=== PATIENT | male | born 1960 | race Caucasian/White ===

== ENCOUNTER 2017-05-14 11:35 | Outpatient (CLI) | payer BC, MEDICARE ==
[~2017-05-14] VITALS: Ht 185.4 cm; Wt 100.0 kg
--- NOTE | ~2017-05-14 | OP ---
PATIENT NAME: STEVE BLEDSOE MEDICAL RECORD: [id number] :60 LOCATION:D.CAT ADMISSION DATE: SURGEON: KESHAV SMITH MD DATE OF OPERATION: 05/14/2017 PROCEDURE: Left heart catheterization, selective coronary angiography, right radial approach as well as aortic root injection. CATHETERS: Creighton catheter, AR catheter. The procedure was well tolerated. The patient returned to low. Sheath was removed. TR band was placed. FINDINGS: Left ventriculography in 30-degree BLACK view, mild anterior hypokinesis, but overall function is preserved at 50%. CORONARY ANATOMY: 1. Left main: Left main is free of disease. 2. LAD: An area of previous stenting shows about 80% stenosis, somewhat diffuse with good target distally. 3. Circumflex: Medium sized circumflex with high OM probably about 80% proximal stenosis, which is a reasonable target. 4. Right coronary artery is a huge artery with anterior superior takeoff. The midportion of vessel has about 80% stenosis. Right at the takeoff of the large posterolateral and posterior descending branch, there is diffuse stenosis of about 80% involving both these vessels proximally. IMPRESSION: Multivessel coronary artery disease. LV function is preserved. It does not appear to be ideal anatomy for intervention from percutaneous standpoint. I think best retirement revascularization would be through coronary bypass grafting. Dr. Roland is consulted for this purpose. TRANSINT:[id number] Voice Confirmation ID: [id number] DOCUMENT ID: [id number] KESHAV SMITH MD at 1347 CC: [id number] DICTATION DATE: 05/14/17 1438 SALES PROCESS MANAGER: 05/14/17 1508 DEP CLI 05/14/[address] [facility] [address] [facility] [place] [address]
--- NOTE | ~2017-05-14 | HEMODYNAMI ---
PATIENT:STEVE BLEDSOE MEDICAL RECORD: [id number] : 60 LOCATION:DMARK ADMISSION DATE: 05/14/17 Generatedon:05/14/201714:33 Patient name: STEVE BLEDSOE Patient #: [id number] SSN: : 1960 Date of study: 05/14/2017 Page: Of Hemodynamic Procedure Report Patient Data Patient Demographics Procedure consent was obtained First Name: STEVE Gender: Male Last Name: RAKAN : 1960 [facility] Initial: RAHEEM Age: 56 year(s) Patient #: [id number] Race: Unknown Additional ID: [id number] Contact details [address]: [address] [place] [address] DRIVE State: [place] City: [place] Zip code: [address] Admission Admission Data Admission Date: 05/14/2017 Admission Time: 11:35 Admit Source: Other Lab Results Lab Result Date: 05/14/2017 Lab Result Time: 12:00 Biochemistry Name Units Result Min Max BUN mg/dl 13 --(--*-)-- 7 18 Creatinine mg/dl 1.1 --(--*-)-- 0.6 1.3 CBC Name Units Result Min Max Hematocrit % 44.2 --(*---)-- 42 54 Hemoglobin g/dl 15.3 --(-*--)-- 13.5 17.5 Procedure Procedure Types Cath Procedure Diagnostic Procedure [facility] w/Coronaries Miscellaneous Procedures Moderate Sedation up to 30 minutes Procedure Description Procedure Date Procedure Date: 05/14/2017 Procedure Start Time: 14:04 Procedure End Time: 14:29 Procedure Staff Name Function Raheem Cooper MD Performing Physician Chayo Claros RT Scrub Elian Burden RN Nurse Sumaya Rice RT Monitor Procedure Data Cath Procedure Fluoroscopy Diagnostic fluoroscopy Total fluoroscopy Time: 7 time: 7 min min Diagnostic fluoroscopy Total fluoroscopy dose: dose: 1310 mGy 1310 mGy Contrast Material Contrast Material Type Amount (ml) Isovue 300 141 Entry Location Entry Primary Successful Side Size Upsize Upsize Entry Closure Benavidez ccessful Closure Location (Fr) 1 (Fr) 2 (Fr) Remarks Device Remarks Radial Right 6 Fr Mechanical artery Short Compression Estimated blood loss: 5 ml Diagnostic catheters Device Type Used For End Catheter Placement DIAGNOSTIC Partridge 110cm 5 Multi-vessel Fr catheter ([id number]) Angiography DIAGNOSTIC AR MOD 5Fr Right Coronary Catheter ([id number]) Angiography DIAGNOSTIC Pigtail 5Fr Multi-vessel catheter ([id number]) Angiography DIAGNOSTIC AR MOD 5Fr Right Coronary Catheter ([id number]) Angiography Procedure Complications No complications Procedure Medications Medication Administration Route Dosage Oxygen NC 2 l/min Heparin Flush Bag added to field 2 bags (1000units/500ml NS) 0.9% NaCl I.V. 100 ml/hr Radial Cocktail added to field 1 syringe (Verapomil 2mg/Nitro 400mcg/Heparin 1500units) Fentanyl I.V. 100 mcg Versed I.V. 2 mg Fentanyl I.V. 100 mcg Radial Cocktail I.A. 1 syringe (Verapomil 2mg/Nitro 400mcg/Heparin 1500units) Hemodynamics Rest HGB: 15.3 (g/dl) Heart Rate: 58 (bpm) Pressure Samples Time Site Value (mmHg) Purpose Heart Use Rate(bpm) 14:08 LV 73/-3,73 Snapshot 46 14:09 AO 111/64(87) Pullback 60 14:09 LV 115/-3,0 Pullback 60 Gradients Valve Time Site 1 Site 2 Mean SEP/DFP Peak To Heart Use (mmHg) (sec/min) Peak Rate (mmHg) (bpm) Aortic 14:09 LV AO 2 7 4 60 115/-3,0 111/64(87) Calculations Valve P-P Mean Valve Index Valve Source Name Gradient Area Flow (cm2) Aortic 4 2 4 2 Snapshots Pre Cath Intra NCS Post Cath Vital Signs Time Heart Resp SPO2 etCO2 NIBP (mmHg) Rhythm Pain Sedation Rate (ipm) (%) (mmHg) Status Level (bpm) 13:48:03 68 18 98 0 192/110(135) NSR 0 (11) 10(A) , No pain 13:52:38 57 19 99 37 194/106(130) NSR 0 (11) 10(A) , No pain 13:57:04 54 19 98 39.3 162/94(147) NSR 0 (11) 10(A) , No pain 14:01:29 51 18 98 37.8 161/90(127) NSR 0 (11) 10(A) , No pain 14:05:53 60 18 98 37.8 159/90(144) NSR 0 (11) 10(A) , No pain 14:10:09 58 18 96 38.6 124/78(101) NSR 0 (11) 9(A) , No pain 14:14:16 60 17 94 38.5 134/89(111) NSR 0 (11) 9(A) , No pain 14:18:34 62 17 96 40.8 150/80(132) NSR 0 (11) 9(A) , No pain 14:22:53 54 18 94 38.5 133/87(122) NSR 0 (11) 9(A) , No pain 14:27:52 61 18 97 30.2 156/99(120) NSR 0 (11) 9(A) , No pain 14:31:51 57 22 97 41.6 160/95(127) NSR 0 (11) 9(A) , No pain Medications Time Medication Route Dose Verified Delivered Reason Notes Effectiveness by by 13:52:05 Oxygen NC 2 l/min Raheem Plummer Per [facility] mckay MD 13:52:13 Heparin Flush added 2 bags Raheem Plummer used for Bag to [facility] Burden RN procedure (1000units/500ml field GOETZ NS) 13:52:23 0.9% NaCl I.V. 100 Raheem Plummer Per ml/hr [facility] mckay MD 13:52:30 Radial Cocktail added 1 Raheem Plummer used for (Verapomil to syringe [facility] Burden individual pension consultant 2mg/Nitro field GOETZ 400mcg/Heparin 1500units) 14:06:45 Fentanyl I.V. 100 mcg Raheem Plummer for sedation [facility] Burden RN, MD 14:06:48 Radial Cocktail I.A. 1 Raheem Maciel for (Verapomil syringe [facility] Cooper vasodilation 2mg/Megan GOETZ MD 400mcg/Heparin 1500units) 14:06:51 Versed I.V. 2 mg Raheem Plummer for sedation [facility] Burden RN, MD 14:23:45 Fentanyl I.V. 100 mcg Raheem Plummer for sedation ColerainNoemy Burden RN, MD Procedure Log Time Note 13:25:51 Elian Burden RN sent for patient. Start room use. 13:34:00 Informed consent obtained and on chart 13:34:24 Admit Source: Other 13:34:48 Diagnostic Cath status Elective 13:34:52 Time tracking: Regular hours 13:34:57 Plan of Care:Hemodynamics will remain stable., Cardiac rhythm will remain stable., Comfort level will be maintained., Respiratory function will remain adequate., Patient/ family verbilizes understanding of procedure., Procedure tolerated without complication., Recovers from procedure without complications.. 13:35:35 H&P Date Dictated: 05/13/2017 Within 30 days and on chart., H&P Addendum completed by physician on day of procedure. (MUST COMPLETE FOR ALL OUTPATIENTS). 13:38:12 Lab Result : BUN 13 mg/dl 13:38:12 Lab Result : Creatinine 1.1 mg/dl 13:38:12 Lab Result : Hemoglobin 15.3 g/dl 13:38:12 Lab Result : Hematocrit 44.2 % 13:39:59 Patient received from Pre/Post Procedure Room to [facility] Alert and oriented. Tansferred to table in Supine position. 13:40:00 Warm blankets applied, and chan hugger turned on for patient comfort. 13:40:00 Correct patient and procedure confirmed by team. 13:40:01 ECG and BP/O2 sat monitors applied to patient. 13:40:03 Pre-procedure instructions explained to patient. 13:40:04 Pre-op teaching completed and patient verbalized understanding. 13:40:05 Family in waiting room. 13:40:06 Patient NPO since Midnight. 13:45:47 Vital chart was started 13:52:05 Oxygen 2 l/min NC was administered by Elian Burden RN; Per physician; 13:52:13 Heparin Flush Bag (1000units/500ml NS) 2 bags added to field was administered by Elian Burden RN; used for procedure; 13:52:23 0.9% NaCl 100 ml/hr I.V. was administered by Elian Burden RN; Per physician; 13:52:30 Radial Cocktail (Verapomil 2mg/Nitro 400mcg/Heparin 1500units) 1 syringe added to field was administered by Elian Burden RN; used for procedure; 13:53:22 Baseline sample Acquired. 13:53:30 Rhythm: sinus bradycardia 13:53:34 Baseline sample Acquired. 13:53:38 Full Disclosure recording started 13:54:07 Is the patient allergic to Iodine/contrast media? No. 13:54:10 Is patient on blood thinner?Yes 13:54:13 ACC The patient was administered the following blood thiners within the last 24 hours: ACCBrilinta 13:54:16 Patient diabetic? No. 13:54:21 ----Pre-sedation anethsthesia assessment.---- 13:54:26 Previous problem with sedation/anesthesia? No ? 13:54:29 Snore? Yes 13:54:30 Sleep apnea? No 13:54:31 Deviated septum? No 13:54:32 Opens mouth fully? Yes 13:54:34 Sticks out tongue? Yes 13:54:37 Airway obstruction? No ? 13:54:40 Dentures? No ? 13:55:04 Right Radial & Right Groin area was prepped with chlora-prep and draped in sterile fashion 13:55:06 Alarms reviewed by R. N. 13:55:07 Sharps counted by scrub and verified by R.N. 13:55:14 Pre procedure: right dorsailis pedis pulse 2+ Normal; easily identifiable; not easily obliterated 13:55:22 Patient pain scale 0/10 ?. 13:55:30 IV patent on arrival in left antecubital with 0.9% NaCl at O. 13:56:23 Use device set Radial Dx or PCI 13:56:27 ACIST Manifold (06940) opened to sterile field. 13:56:28 ACIST Hand Control (14654) opened to sterile field. 13:56:29 ACIST Syringe (41757) opened to sterile field. 13:56:30 Bag Decanter () opened to sterile field. 13:56:31 Medline Cath Pack ([id number]) opened to sterile field. 13:56:32 MBrace Wrist Support ([id number]) opened to sterile field. 13:56:33 Tegaderm 4 x 4 (1626W) opened to sterile field. 13:56:34 DIAGNOSTIC WIRE .035 260cm J wire (017764) opened to sterile field. 13:56:35 SHEATH 6FR Slender ([id number]) opened to sterile field. 14:04:14 Physician arrived 14:04:14 --------ALL STOP TIME OUT------ 14:04:14 Final Timeout: patient, procedure, and site verified with staff and physician. All members of the team are in agreement. 14:04:16 Right Radial & Right Groin site verified by team. 14:04:20 Physical assessment completed. ASA score P 2 - A patient with mild systemic disease as per Raheem Cooper MD. 14:04:24 Sedation plan: IV Moderate Sedation Medication:Versed, Fentanyl 14::34 Procedure started. 14:04:46 Local anesthetic to right radial artery with Lidocaine 2% by Raheem Cooper MD.INITIAL ACCESS ONLY 14:06:27 A 6 Fr Short sheath was inserted into the Right Radial artery 14:06:45 Fentanyl 100 mcg I.V. was administered by Elian Burden RN; for sedation; 14:06:48 Radial Cocktail (Verapomil 2mg/Nitro 400mcg/Heparin 1500units) 1 syringe I.A. was administered by Raheem Cooper MD; for vasodilation; 14:06:51 Versed 2 mg I.V. was administered by Elian Burden RN; for sedation; 14:07:36 A DIAGNOSTIC Partridge 110cm 5 Fr catheter (268882) was advanced over the wire and used for Multi-vessel Angiography. 14:08:54 LV hemodynamics recorded. 14:08:55 LV gram done using BLACK 14:08:57 Injector settings: Ml/sec: 5, Volume: 15, 14:09:06 EF : 50 % 14:09:58 LCA angiography performed. 14:10:01 Injector settings: Ml/sec: 3, Volume: 6, 14:11:27 Catheter removed. 14:12:54 A DIAGNOSTIC AR MOD 5Fr Catheter ([id number]) was advanced over the wire and used for Right Coronary Angiography. 14:15:50 Catheter removed. unable to cannulate vessel. 14:16:44 A DIAGNOSTIC Pigtail 5Fr catheter ([id number]) was advanced over the wire and used for Multi-vessel Angiography. 14:16:53 Aortic Root visualized 14:19:44 A DIAGNOSTIC AR MOD 5Fr Catheter ([id number]) was advanced over the wire and used for Right Coronary Angiography. 14:23:09 RCA angiography performed. 14:23:12 Injector settings: Ml/sec: 3, Volume: 6, 14:23:45 Fentanyl 100 mcg I.V. was administered by Elian Burden RN; for sedation; 14:26:33 Catheter removed. 14:27:44 TR BAND Standard ([id number]) opened to sterile field. 14:27:50 Sheath removed intact; hemostasis achieved with Mechanical Compression to the Right Radial artery. 14:27:52 Procedure ended.(Physican Out) 14:28:01 Fluoroscopy time 07.00 minutes. 14:28:05 Fluoroscopy dose: 1310 mGy 14:28:05 Flurop Dose total: 1310 14:28:09 Contrast amount:Isovue 300 141ml. 14:28:11 Sharps counted by scrub and verified by R.N. 14:28:13 Insertion/operative site no bleeding no hematoma. 14:28:21 TR band inflated with 10cc of air. 14:28:26 Post right radial artery:stable 14:28:27 Post Procedure Pulses reassessed and unchanged 14:28:30 Post procedure rhythm: unchanged. 14:28:33 Estimated blood loss: 5 ml 14:28:34 Post procedure instruction explained to patient.Patient verbalizes understanding. 14:28:35 Patient needs reinforcement of post procedure teaching. 14:28:54 Procedure type changed to Cath procedure, Diagnostic procedure, LHC, LHC w/Coronaries, Miscellaneous Procedures, Moderate Sedation up to 30 minutes 14:28:55 Procedure and supply charges have been captured, reviewed, submitted and are correct. 14:29:00 Procedure Complication : No complications 14:29:02 Vital chart was stopped 14:29:05 See physician's report for complete and final results. 14:29:08 Report given to Pre/Post Procedure Room. 14:29:10 Patient transfered to Pre/Post Procedure Room with Stretcher. 14:29:12 Procedure ended. 14:29:12 Full Disclosure recording stopped 14:29:15 End room use (Document Last) Device Usage Item Name Manufacture Quantity Catalog Hospital Part Current Minima l Lot# / Number Charge Number Stock Stock Serial# Code ACIST Acist 1 28529 927736 729580 368485 5 Manifold Medical (55103) Systems Inc ACIST Hand Acist 1 80381 641808 058583 340521 5 Control Medical (38771) Systems Inc ACIST Acist 1 12450 475748 401726 939210 20 Syringe Medical (11433) Systems Inc Bag Decanter Microtek 1 2001S 873531 09840 686609 5 (2001S) Medical Inc. Medline Cath Cardinal 1 [id number] 394815 86818 089401 5 Pack Health ([id number]) MBrace Wrist Advanced 1 140-0250-00 405999 48364 373490 5 Support Vascular ([id number]) Dynamics Tegaderm 4 x 3M 1 1626W 069734 950279 102266 5 4 (1626W) DIAGNOSTIC [facility] [place] 1 903540 272950 136212 076762 30 WIRE .035 260cm J wire (706451) SHEATH 6FR Terumo 1 [id number] 740123 518529 920099 40 Slender ([id number]) DIAGNOSTIC Terumo 1 40-5013 569384 535405 999876 5 Partridge 110cm 5 Fr catheter (423329) DIAGNOSTIC Cardinal 1 [id number] 231213 216256 535032 15 AR MOD 5Fr Health Catheter (866232H) DIAGNOSTIC Cardinal 1 [id number] 789739 864179 451173 5 Pigtail 5Fr Health catheter (970699E) TR BAND Terumo 1 [id number] 626033 399775 285394 40 Standard ([id number]) Signature Audit [place] Stage Time Signature Unsigned Intra-Procedure 05/14/2017 Sumaya Rice 2:33:39 PM RT(R) Signatures Monitor : Sumaya Rice RT Signature : Date : Time : [facility] [address] [place] [address]
[2017-05-14] MEDS ORDERED: AVAPRO300 MG PO (11:46)
[2017-05-14] MEDS ORDERED: COREG12.5 MG PO (11:46)
[2017-05-14] MEDS ORDERED: BAYER CHEWABLE81 MG PO (11:47)
[2017-05-14] MEDS ORDERED: COPAXONE INJ20 MG/ML SQ (11:47)
[2017-05-14] MEDS ORDERED: CRESTOR20 MG PO (11:47)
[2017-05-14] MEDS ORDERED: NEURONTIN 300300 MG (11:48)
[2017-05-14] MEDS ORDERED: DOLOPHINE HCL10 MG PO (11:49)
[2017-05-14] MEDS ORDERED: VALIUM10 MG PO (11:50)
[2017-05-14 11:55] VITALS: BP 193/98; Ht 185.4 cm; Wt 100.0 kg
[2017-05-14 12:17] LABS: BASOPHILS 0.3 % (0-2); EOSINOPHILS 1.7 % (0-7); HEMATOCRIT 44.2 % (42.0-54.0); HEMOGLOBIN 15.3 g/dL (13.5-17.5); IMMATURE GRANULOCYTES 0.2 % (0-5); MCH 31.9 pg (26.0-34.0); MCHC 34.6 g/dL (31.0-37.0); MCV 92.3 fL (80.0-100.0); MEAN PLATELET VOLUME 10.2 fL (7.4-10.4); MONOCYTES 8.9 % (2-11); NEUTROPHILS 71.9 % (40-80); PLATELET COUNT 261 10x3/uL (130-400); RBC 4.79 10x6/uL (4.20-6.10); RDW 12.4 % (11.5-14.5); WBC 6.6 10x3/uL (4.8-10.8)
[2017-05-14 12:30] LABS: ANION GAP 11.5 mmol/L (8-16); CALCIUM 8.7 mg/dL (8.5-10.1); CARBON DIOXIDE 30.5 mmol/L (21.0-32.0); CREATININE - SERUM 1.1 mg/dL (0.6-1.3)
== END 2017-05-14 16:45 | disposition home or self-care (01) ==
LOC: D.CATH 11:35
PROVIDERS: Internal Medicine Interventional Cardiology
DX: I25.10 Atherosclerotic heart disease of native coronary artery without angina pectoris (principal); Z01.812 Encounter for preprocedural laboratory examination